=== PATIENT | female | born 1980 | race African-American/Black ===

== ENCOUNTER 2022-06-10 13:45 | Emergency (ER) | payer OTHER ==
[2022-06-10 14:00] VITALS: BP 136/72; PULSE 84; RESP 18; TEMP 98.5; BMI 38.4
== END 2022-06-10 15:17 | disposition left against medical advice (07) ==
LOC: JER 13:45
DX: D64.9 Anemia, unspecified (principal)
CPT/HCPCS: 99281-25

== ENCOUNTER 2022-07-08 13:57 | Day surgery (SDC) | payer OTHER ==
[2022-07-08 14:32] VITALS: RESP 18; TEMP 99.1
[2022-07-08] MEDS ORDERED: FERRIC CARBOXYMALTOSE 750 MG in SODIUM CHLORIDE 250 ML IVPB ONE (14:45)
[2022-07-08 16:20] VITALS: BP 145/83; PULSE 68
== END 2022-07-08 16:21 | disposition home or self-care (01) ==
LOC: FINFUSION 13:57 → FM/S 13:59 → FINFUSION 16:21
PROVIDERS: ATTEND Family Medicine
PROC: 3E033GC Introduction of Other Therapeutic Substance into Peripheral Vein, Percutaneous Approach (ICD-10-PCS; principal; 2022-07-08)
DX: D50.9 Iron deficiency anemia, unspecified (principal)
CPT/HCPCS: 96365; J1439

== ENCOUNTER 2022-07-15 14:04 | Day surgery (SDC) | payer OTHER ==
[2022-07-15] MEDS ORDERED: FERRIC CARBOXYMALTOSE 750 MG in SODIUM CHLORIDE 250 ML IVPB ONE (14:30)
[2022-07-15 14:58] VITALS: RESP 18; TEMP 98.1
[2022-07-15 15:32] VITALS: BP 138/76; PULSE 58
== END 2022-07-15 15:34 | disposition home or self-care (01) ==
LOC: FINFUSION 14:04 → FM/S 14:09 → FINFUSION 15:34
PROVIDERS: ATTEND Family Medicine
PROC: 3E033GC Introduction of Other Therapeutic Substance into Peripheral Vein, Percutaneous Approach (ICD-10-PCS; principal; 2022-07-15)
DX: D50.9 Iron deficiency anemia, unspecified (principal)
CPT/HCPCS: 96365; J1439